=== PATIENT | female | born 1935 | race Caucasian/White ===

== ENCOUNTER 2023-06-03 11:49 | Emergency (ER) | payer MEDICARE, BC ==
[2023-06-03 12:44] LABS: #Monocytes 0.7 10x3/uL (0.0-1.1); #Neutrophils 5.7 10x3/uL (1.5-8.4); %Basophils 0.4 % (0.0-2.0); %Eosinophils 0.5 % (0.0-6.0); %Lymphocytes 17.2 % (18.0-47.0); %Monocytes 8.3 % (0.0-10.0); %Neutrophils 73.5 % (40.0-75.0); Hematocrit 42.7 % (34.9-44.5); Hemoglobin 13.9 g/dL (12.0-15.5); Mean Corpuscular HGB CONC 32.6 g/dL (32.0-36.0); Mean Corpuscular Hemoglobin 29.1 pg (27.0-33.0); Mean Corpuscular Volume 89.3 fl (81.6-98.3); Mean Platelet Volume 10.7 fl (7.4-10.4); Platelet Count 194 10x3/uL (150-450); RBC Distribution Width 12.9 % (11.5-14.5); Red Blood Cell (RBC) Count 4.78 10x6/uL (3.90-5.03); White Blood Cell (WBC) Count 7.8 10x3/uL (3.5-10.5)
[2023-06-03 13:11] LABS: ALT (SGPT) 16 U/L (8-55); AST (SGOT) 20 U/L (5-34); Albumin 4.1 g/dL (3.4-4.8); Alkaline Phosphatase 60 U/L (40-110); Anion Gap 13 mmol/L (10-20); BUN (Urea Nitrogen) 16 mg/dL (9.8-20.1); Bilirubin, Total 1.1 mg/dL (0.2-1.2); Calc. Creatinine Clearance 0 mL/min (70-130); Calcium 9.6 mg/dL (7.8-10.44); Carbon Dioxide 26 mmol/L (23-31); Chloride 103 mmol/L (98-107); Estimated GFR 64; Globulin 2.9 g/dL (2.4-3.5); Glucose 121 mg/dL (83-110); Potassium 4.1 mmol/L (3.5-5.1); Sodium 138 mmol/L (136-145)
[2023-06-03 13:15] LABS: Bilirubin Neg (Negative); Blood, Urine 250 (Negative); Glucose, Urine (Dipstick) Normal (Negative); Ketone, Urine Negative (Negative); Leukocyte 500 (Negative); Nitrite Negative (Negative); Protein, Urine (Dipstick) 15 mg/dl (Neg-Trace); Specific Gravity, Urine 1.015 (1.005-1.030); Urobilinogen Normal mg/dL (Less than 2)
[2023-06-03 13:24] LABS: Clarity Hazy (Clear)
[2023-06-03 13:29] LABS: CAUTI Indications for Culture Pelvic or flank pain
[2023-06-03 13:31] LABS: Bacteria/HPF 2+ HPF (None Seen); Free T4 (Free Thyroxine) 0.79 ng/dL (0.70-1.48); Squamous Epithelial 0-3 HPF (0-3); Thyroid Stimulating Hormone 4.2711 uIU/mL (0.35-4.94)
[2023-06-03 13:32] LABS: Transitional Epithelial 0-3 HPF (None Seen)
[2023-06-03 13:34] LABS: Urine Culture Reflex Yes Yes
== END 2023-06-03 13:47 | disposition home or self-care (01) ==
LOC: CSHERS 11:49
DX: N39.0 Urinary tract infection, site not specified (principal); R31.9 Hematuria, unspecified; E03.9 Hypothyroidism, unspecified
CPT/HCPCS: 36415; 74176; 80053; 81001; 84439; 84443; 85025; 87077; 87086; 87186